=== PATIENT | male | born 1990 | race Caucasian/White ===

== ENCOUNTER 2022-01-20 23:46 | Emergency (ER) | payer OTHER, SELFPAY ==
[2022-01-20 23:51] VITALS: BP 137/73; PULSE 96; RESP 20; TEMP 36.7; O2SAT 96
--- NOTE | 2022-01-20 23:57 | DI.RAD.S_ITS ---
PROCEDURE: XR NASAL BONES MIN 3V INDICATIONS: struck in nose with wrench TECHNIQUE: 3 views of the nasal bones acquired. COMPARISON: None. FINDINGS: Bones: Nondisplaced distal bilateral nasal bone fractures.. Nasal septum is midline. Normal nasociliary nerve grooves are noted. Visualized nasal spine appears intact Soft tissues: No suspicious soft tissue calcifications. IMPRESSION: Nondisplaced distal bilateral nasal bone fractures. Dictated by: Shay Nguyen M.D. on 01/21/2022 at 0:18 Approved by: Shay Nguyen M.D. on 01/21/2022 at 0:22
--- NOTE | 2022-01-21 01:07 | ED.WOUNDLAC ---
HPI - Wound/Laceration General Chief Complaint: Wound/Laceration Stated Complaint: cut on nose Time Seen by Provider: 01/21/22 00:56 Source: patient Mode of arrival: Ambulatory History of Present Illness HPI narrative: 31-year-old otherwise healthy gentleman was working on a car this evening using a wrench with a particularly recalcitrant bolt and as the bolt gave way he was hit in the bridge of the nose. Bleeding is controlled at the time of arrival. He has taken some meloxicam prior to arrival. There is no bleeding from the nares, no loss of consciousness and no significant hematoma. He has a 1 cm superficial laceration over the bridge of his nose. He is not complaining of headache, dizziness, neck pain, fevers, cough, abdominal pain vomiting or any additional neurologic findings. Review of Systems Review of Systems Narrative: Remainder of complete review of systems is otherwise unremarkable except for that included in the HPI. Exam Initial Vital Signs Initial Vital Signs: Vital Signs Temperature 98.0 F 01/20/22 23:51 Pulse Rate 96 H 01/20/22 23:51 Respiratory Rate 20 01/20/22 23:51 Blood Pressure 137/73 01/20/22 23:51 Pulse Oximetry 96 01/20/22 23:51 General: Alert appropriate in no acute distress HEENT: 1 cm laceration superficial over the bridge of the nose. Minimal bleeding. No injury to surrounding orbital bones or facial structures Respiratory: Able to speak in full sentences, no obvious respiratory distress Skin: No obvious rashes, warm and dry Neurologic: Grossly intact no obvious asymmetries or abnormalities Psych: appropriate insight and affect, cooperative Procedures Laceration Repair Bridge of the nose: Time of procedure: 01:16 Site: face Size (cm): 1 Description: linear Depth: simple, single layer Pre-repair: wound explored Skin layer closed with: dermabond Course Orders Ordered: ED Orders 01/20/22 23:57 XR nasal bones min 3V Stat Discontinued Medications Acetaminophen (Acetaminophen 325 Mg Tablet) 325 mg PO NOW ONE Stop: 01/21/22 01:06 Ibuprofen (Ibuprofen 400 Mg Tablet) 400 mg PO NOW ONE Stop: 01/21/22 01:06 Vital Signs Vital signs: Vital Signs - 8 hr 01/20/22 23:51 Temperature 98.0 F Pulse Rate 96 H Respiratory Rate 20 Blood Pressure 137/73 Pulse Oximetry 96 MDM - Wound/Laceration MDM Narrative Medical decision making narrative: Minor trauma to the bridge of the nose with superficial laceration and a nondisplaced nasal bone fracture that are not communicating.? No other injury.? Wound is closed with Dermabond.? Patient tolerated procedure well.? Recommended that he try to avoid picking at the laceration and try to keep the skin glue in place for at least 5 days.? There is no need for antibiotics at this time.? He is safe for home discharge Discharge Plan Departure Patient Disposition: Home Clinical Impression: Laceration Fracture of nasal bone Qualifiers: Encounter type: initial encounter Fracture type: closed Qualified Code(s): S02.2XXA - Fracture of nasal bones, initial encounter for closed fracture Instructions: DI for Nose Fracture, DI for Minor Laceration Activity Restrictions/Additional Instructions: thank you for coming in today You do have a tiny break in the nasal bone. This will heal nicely with no additional treatment The small laceration over the area is closed with skin glue and will also heal without additional treatment. The skin glue will peel off in about 5 days and the wound should be adequately healed at that time If the area seems to be getting more sore, red or you develop any drainage you do need to return to the emergency department
[2022-01-21] MEDS: ACETAMINOPHEN 325 MG TABLET PO (01:11)
== END 2022-01-21 01:34 | disposition home or self-care (01) ==
PROVIDERS: Emergency Provider Emergency Medicine
DX: S01.21XA Laceration without foreign body of nose, initial encounter (principal); S02.2XXA Fracture of nasal bones, initial encounter for closed fracture; W22.8XXA Striking against or struck by other objects, initial encounter; Y93.89 Activity, other specified
CPT/HCPCS: 12011; 70160; 99283